=== PATIENT | female | born 1950 | race Caucasian/White ===

== ENCOUNTER → 2018-12-12 | Outpatient (CLI) | payer MEDICARE, OTHER ==
--- NOTE | 2018-12-12 17:12 | KCIC ---
MR of the left ankle and MR of the left foot HISTORY: Ganglion cyst of the left ankle medially. TECHNIQUE: Routine multiplanar sequences are obtained separately through the left ankle and left foot. Left ankle findings: Surface marker placed at the area of concern at the medial heel. No evidence of soft tissue mass or fluid collection. No prominent soft tissue edema. No evidence of an encapsulated lipoma. The underlying muscle tissue appears intact. Peroneal tendons are intact. Anterior talofibular ligament, calcaneofibular ligament and posterior talofibular ligament are intact. The inferior tibiofibular ligaments are intact. Posterior tibial and flexor tendons are intact. No acute medial ligament injury. Anterior tibial and extensor tendons are intact. Achilles tendon is intact. No acute plantar fasciitis. Small calcaneal enthesophytes. Subtalar joints are patent. Tarsal sinus is intact. Talar dome is intact. No evidence of acute fracture or aggressive bone destruction. No large joint effusion. IMPRESSION: No evidence of cyst or ganglion at the area of concern. No acute findings. Left foot findings: Bones are intact without marrow edema, acute fracture or bone destruction. Lisfranc ligament complex is intact. No significant tendon sheath fluid or tendon disruption. No acute sesamoiditis. No significant joint effusion. No abnormal soft tissue fluid collection. IMPRESSION: No acute findings are identified. Electronically signed by: Dinesh Madrigal MD (12/12/2018 5:09 PM) [id number]
== END | disposition home or self-care (01) ==
LOC: KCIC MRI 14:53
PROVIDERS: ATTEND Family Medicine
DX: M67.472 Ganglion, left ankle and foot (principal)
CPT/HCPCS: 73718; 73721